=== PATIENT | male | born 1955 | race Caucasian/White ===

== ENCOUNTER 2017-01-05 10:04 | Emergency (ER) | payer OTHER ==
[~2017-01-05] VITALS: Ht 167.6 cm; Wt 97.5 kg
[2017-01-05] MEDS ORDERED: OMEP20TA68 PO (10:17)
[2017-01-05] MEDS ORDERED: LISI10TA5 PO (10:17)
[2017-01-05] MEDS ORDERED: POLY10DR OP (10:17)
--- NOTE | 2017-01-05 10:43 | NUR ---
Patient discharged to home in stable conditon. Written and verbal after care instructions given. Patient verbalizes understanding of instructions.
== END 2017-01-05 10:44 | disposition home or self-care (01) ==
LOC: ER 10:04
DX: H10.9 Unspecified conjunctivitis (principal); I10 Essential (primary) hypertension; K21.9 Gastro-esophageal reflux disease without esophagitis; E78.5 Hyperlipidemia, unspecified
CPT/HCPCS: A4663